=== PATIENT | female | born 1965 | race Caucasian/White ===

== ENCOUNTER 2019-07-30 20:41 | Emergency (ER) | payer MEDICAID ==
[~2019-07-30] VITALS: Ht 170.2 cm; Wt 66.5 kg
[~2019-07-30 20:41] MED LIST: AMOX250S20 PO; DOCU50LI26 PEG; FLUT1BLS INH; FURO20TA3 PO; GABA300C10 PO; GUAI100L11 PEG; HYDR-2995 PO; HYDR15SO3 PEG; IPRA3AMP30 NPPB; LACT20SO13 PO; NAPR125O4 PO; NAPR250T6 PO; PSEU1TAB PO; QUET100T4 PO
[2019-07-30 20:48] VITALS: BP 150/100
--- NOTE | 2019-07-30 21:00 | NUR ---
TO ROOM. STS CLOGGED FEEDING TUBE (HAS GUEVARA INSTEAD OF PEG). GUEVARA INSERTED LAST SUMMER BY [facility]. CLOGGED X2 DAYS. NO DISCHARGE. REDNESS AROUND SITE. CALL MEL[facility] IN REACH.
== END 2019-07-30 22:17 | disposition home or self-care (01) ==
LOC: ED 21:00
DX: Z43.1 Encounter for attention to gastrostomy (principal); Z85.01 Personal history of malignant neoplasm of esophagus
CPT/HCPCS: 99281